=== PATIENT | female | born 1995 | race Caucasian/White ===

== ENCOUNTER 2023-08-28 23:43 | Emergency (ER) | payer OTHER ==
[2023-08-29 00:35] VITALS: BP 85/47; PULSE 94; RESP 14; TEMP 97.9; BMI 21.4
== END 2023-08-29 01:49 | disposition home or self-care (01) ==
LOC: FER 23:43
DX: F10.929 Alcohol use, unspecified with intoxication, unspecified (principal)
CPT/HCPCS: 99283-25